=== PATIENT | male | born 1950 | race African-American/Black ===

== ENCOUNTER 2017-02-21 11:55 | Outpatient (CLI) | payer MEDICARE, BC ==
[2017-02-21 13:38] LABS: Cardiac Risk 6.6 (Less than 4.5)
[2017-02-21 14:08] LABS: Hemoglobin A1c 10.6 % (4.0-6.0)
== END 2017-02-21 11:56 | disposition home or self-care (01) ==
LOC: NAVSJIPCSP 11:55
PROVIDERS: ATTEND Internal Medicine
DX: E11.65 Type 2 diabetes mellitus with hyperglycemia (principal); I11.9 Hypertensive heart disease without heart failure; N18.5 Chronic kidney disease, stage 5
CPT/HCPCS: 36415; 80061; 83036